=== PATIENT | female | born 1970 | race Caucasian/White ===

== ENCOUNTER 2019-05-16 07:44 | Emergency (ER) | payer SELFPAY ==
[~2019-05-16] VITALS: Ht 162.6 cm; Wt 63.7 kg
[~2019-05-16 07:44] MED LIST: ERYT1OIN6 LEFT EYE
[2019-05-16 07:56] VITALS: Ht 162.6 cm; Wt 63.7 kg
[2019-05-16] MEDS ORDERED: FLUORESCEIN STRIP LEFT EYE ONE (09:00)
[2019-05-16] MEDS ORDERED: TETRACAINE 0.5% 4 ML OPH LEFT EYE ONE (09:00)
[2019-05-16 09:57] VITALS: BP 117/85; PULSE 71; RESP 16
== END 2019-05-16 09:58 | disposition home or self-care (01) ==
LOC: FTE 07:44
DX: H57.12 Ocular pain, left eye (principal); H57.89 Other specified disorders of eye and adnexa
CPT/HCPCS: 99283